=== PATIENT | female | born 1985 | race Native Hawaiian/Other Pacific Islander ===

== ENCOUNTER 2016-09-01 19:51 | Emergency (ER) | payer OTHER ==
[2016-09-01 20:10] VITALS: BP 134/80; RESP 16
[2016-09-01] MEDS ORDERED: Sodium Chloride 0.9% 1,000 ML IV STA (20:44)
[2016-09-01 21:06] LABS: BASO % 0.2 % (0.0-2.0); HEMATOCRIT 39.2 % (34.0-47.0); LYMPH # 0.5 K/uL (1.0-4.3); LYMPH % 3.9 % (20.0-40.0); MEAN CELL VOLUME 89.5 fl (81.0-99.0); MEAN CORPUSCULAR HEMOGLOBIN 29.4 pg (27.0-31.0); MEAN CORPUSCULAR HGB CONC 32.9 g/dL (33.0-37.0); MEAN PLATELET VOLUME 7.6 fl (7.2-11.7); MONO # 1.5 K/uL (0.0-0.8); MONO % 11.5 % (0.0-10.0); NEUT # 10.9 K/uL (1.8-7.0); NEUT % 84.4 % (50.0-75.0); PLATELET COUNT 205 K/uL (130-400); RED CELL DISTRIBUTION WIDTH 13.2 % (11.5-14.5); WHITE BLOOD COUNT 12.9 K/uL (4.8-10.8)
[2016-09-01 21:11] LABS: RBC URINE 16 /hpf (0-3); URINE BACTERIA RARE (<OCC); URINE BILIRUBIN NEGATIVE (NEGATIVE); URINE BLOOD NEGATIVE (NEGATIVE); URINE COLOR YELLOW (YELLOW); URINE GLUCOSE (UA) NEG (Normal); URINE KETONE 20 mg/dL (NEGATIVE); URINE LEUKOCYTE ESTERASE MOD Leu/uL (Negative); URINE PROTEIN 100 mg/dL (NEGATIVE); URINE UROBILINOGEN 0.2-1.0 mg/dL (0.2-1.0); WBC URINE 91 /hpf (0-5)
[2016-09-01 21:24] LABS: ALB/GLOB RATIO 1.1 (1.0-2.1); ALKALINE PHOSPHATASE 72 U/L (38-126); ALT/SGPT 76 U/L (9-52); AST/SGOT 113 U/L (14-36); BILIRUBIN,TOTAL 2.1 mg/dl (0.2-1.3); BLOOD UREA NITROGEN 10 mg/dl (7-17); CALCIUM 8.8 mg/dL (8.4-10.2); CARBON DIOXIDE 20 mmol/L (22-30); CHLORIDE 101 mmol/L (98-107); GFR AFRICAN-AMERICAN > 60; GLUCOSE,RANDOM 112 mg/dL (65-105); POTASSIUM 4.2 MMOL/L (3.6-5.0); SODIUM 137 mmol/l (132-148)
[2016-09-01] MEDS ORDERED: cefTRIAXone (Rocephin) 1 gm Inj ONE (21:25)
--- NOTE | 2016-09-01 22:11 | ED PDOC ---
Past Medical History Vital Signs: Last Vital Signs Temp 102.9 F H 09/01/16 20:06 Pulse 123 H 09/01/16 20:06 Resp 16 09/01/16 20:06 BP 134/80 09/01/16 20:06 Pulse Ox 100 09/01/16 20:06 - Allergies Allergies/Adverse Reactions: Allergies Allergy/AdvReac Type Severity Reaction Status Date / Time No Known Allergies Allergy Verified 09/01/16 20:06 - Laboratory Results Result Diagrams: 09/01/16 20:56 09/01/16 20:56 - ECG O2 Sat by Pulse Oximetry: 100 HPI History Of Present Illness: Polina Saeed is a 31 y/o female
--- NOTE | 2016-09-01 22:15 | ED PDOC ---
HPI: General Adult Time Seen by Provider: 09/01/16 20:12 Chief Complaint (Nursing): Fever Chief Complaint (Provider): Fever History Per: Patient History/Exam Limitations: no limitations Onset/Duration Of Symptoms: Hrs (24) Current Symptoms Are (Timing): Still Present Severity: Moderate Additional Complaint(s): Polina Saeed is a 31 y/o [place] female presenting to the ER on 09/01/2016 with complaints of a fever x24 hours. Fever, with a T-max recorded at 105 degrees, is associated with chills, headaches, myalgia and sweats. Patient reports self- medicating herself with amoxcillin with she had at hand and feverol with no resolution of symptoms. She denies any vomiting, diarrhea, or urinary symptoms initially. Past Medical History Reviewed: Historical Data, Nursing Documentation, Vital Signs Vital Signs: Last Vital Signs Temp 102.9 F H 09/01/16 20:06 Pulse 123 H 09/01/16 20:06 Resp 16 09/01/16 20:06 BP 134/80 09/01/16 20:06 Pulse Ox 100 09/01/16 22:52 - Medical History PMH: No Chronic Diseases - Surgical History Surgical History: No Surg Hx - Family History Family History: States: Unknown Family Hx - Social History Current smoker - smoking cessation education provided: No Alcohol: None Drugs: Denies - Home Medications Home Medications: Ambulatory Orders Medication Instructions Recorded Ciprofloxacin/Ciprofloxa HCl 500 mg PO Q12 #20 tab 09/01/16 [Ciprofloxacin] - Allergies Allergies/Adverse Reactions: Allergies Allergy/AdvReac Type Severity Reaction Status Date / Time No Known Allergies Allergy Verified 09/01/16 20:06 Review of Systems ROS Statement: Except As Marked, All Systems Reviewed And Found Negative Constitutional: Positive for: Fever, Chills, Sweats Gastrointestinal: Negative for: Vomiting, Diarrhea Genitourinary Female: Negative for: Dysuria, Incontinence Musculoskeletal: Positive for: Other ((+) myalgia ) Neurological: Positive for: Headache Physical Exam - Reviewed Nursing Documentation Reviewed: Yes Vital Signs Reviewed: Yes - Physical Exam Appears: Positive for: Non-toxic, No Acute Distress Head Exam: Positive for: ATRAUMATIC, NORMOCEPHALIC Skin: Positive for: Diaphoresis (and febrile ) Eye Exam: Positive for: Normal appearance, EOMI, PERRL ENT: Positive for: Normal ENT Inspection. Negative for: Pharyngeal Erythema, Tonsillar Exudate, Tonsillar Swelling Neck: Positive for: Normal, Painless ROM, Supple Cardiovascular/Chest: Positive for: Tachycardia Respiratory: Positive for: Normal Breath Sounds. Negative for: Wheezing, Respiratory Distress Gastrointestinal/Abdominal: Positive for: Normal Exam, Soft. Negative for: Tenderness Back: Negative for: L CVA Tenderness, R CVA Tenderness Extremity: Positive for: Normal ROM. Negative for: Deformity, Swelling Neurologic/Psych: Positive for: Alert, Oriented. Negative for: Motor/Sensory Deficits - Laboratory Results Result Diagrams: 09/01/16 20:56 09/01/16 20:56 - ECG O2 Sat by Pulse Oximetry: 100 Medical Decision Making Medical Decision Makin:12 Initial Impression- 31 y/o female with febrile illness and flu-like symptoms. Initial Plan- * EKG * Urine Preg * Urine Dip * CBC w/ differential * Sodium Chloride 1,000 ml IV * Tamiflu 75 mg PO * Tylenol 650 mg PO * Blood Cx * Urine Cx * Re-evaluation 21:45 Urine reviewed, consistent with large leukocytes present in urine. Pt now admits to urine frequency. Rocephin IV has been ordered 22:50 Labs reviewed, shows mild elevation of WBC. Pt was re-evaluated, reports marked improvement of symptoms. Reinforced need for pt to abstain from taking Abx incorrectly, which she understood and agreed with. Pt will be discharged routinely with a Rx for Cipro and will schedule a follow-up with a local PMD. Condition is improved. Clinical Impression- UTI Documented by Donald Lisa, acting as a scribe for Manish Vick MD. All medical record entries made by the Scribe were at my direction and personally dictated by me. I have reviewed the chart and agree that the record accurately reflects my personal performance of the history, physical exam, medical decision making, and the department course for this patient. I have also personally directed, reviewed, and agree with the discharge instructions and disposition. Disposition - Clinical Impression Clinical Impression: Urinary tract infection - Disposition Referrals: Jac Cruz MD [Staff Provider] - Disposition Time: 22:50 Condition: IMPROVED Prescriptions: Ciprofloxacin/Ciprofloxa HCl [Ciprofloxacin] 500 mg PO Q12 #20 tab Instructions: Urinary Tract Infection in Women (ED)
[2016-09-01 23:09] LABS: NEUTROPHIL 87 % (42-75); REACTIVE LYMPHOCYTES 1 % (0-0); TOTAL CELLS COUNTED 100
[2016-09-01 23:33] VITALS: PULSE 97; TEMP 98.5; O2SAT 99
--- NOTE | 2016-09-02 16:03 | CARD ---
APPROVED REPORT EKG Measurement Heart [id number] <Conclusion> Normal sinus rhythm Rightward axis Borderline ECG
== END 2016-09-01 23:33 | disposition home or self-care (01) ==
LOC: H.ER 19:51
DX: N39.0 Urinary tract infection, site not specified (principal)